=== PATIENT | male | born 1995 | race Caucasian/White ===

== ENCOUNTER 2023-08-01 15:46 | Emergency (ER) | payer OTHER, SELFPAY ==
[2023-08-01 15:50] VITALS: BP 139/89
[2023-08-01 16:03] LABS: % Basophils 0.5 % (0-2); % Eosinophils 0.5 % (0-6); % Immature Granulocytes 0.3 % (0-0.5); % Lymphocytes 29.6 % (20.5-51.1); % Monocytes 7.1 % (1.7-9.3); Absolute Lymphocytes 2.2 10^3/uL (1.2-3.4); Absolute Monocytes 0.5 10^3/uL (0.1-0.6); Absolute Neutrophils 4.5 10^3/uL (1.4-6.5); Hematocrit 40.6 % (39.0-52.0); Hemoglobin 14.8 g/dL (13.0-18.0); Mean Corp Hgb Conc. 36.5 g/dL (33.0-37.0); Mean Corpuscular Hgb 33.8 pg (27.0-31.0); Mean Corpuscular Volume 92.7 fL (80.0-94.0); Mean Platelet Volume 9.6 fL (7.4-10.4); Nucleated Red Blood Cells % 0 % (-); Platelet Count 227 10^3/uL (130-400); Red Blood Cell Count 4.38 10^6/uL (4.70-6.10); Red Cell Dist. Width 12.1 % (11.5-14.5); White Blood Cell Count 7.3 10^3/uL (4.8-10.8)
[2023-08-01 16:28] LABS: ALT (SGPT) 39 U/L (0-50); AST (SGOT) 31 U/L (17-59); Albumin 5.1 g/dl (3.5-5.0); Alkaline Phosphatase 56 U/L (38-126); Blood Urea Nitrogen 16 mg/dl (9-20); Calcium 10.4 mg/dl (8.4-10.2); Carbon Dioxide 28 mmol/L (22-30); Chloride 101 mmol/L (98-107); Glucose 105 mg/dl (70-99); Sodium 137 mmol/L (135-145); Total Bilirubin 1.6 mg/dl (0.2-1.3); Total Protein 8.2 g/dl (6.3-8.2); eGFR > 60.00
[2023-08-01 16:34] LABS: Potassium 3.4 mmol/L (3.5-5.1)
--- NOTE | 2023-08-01 17:22 | ED.GENMED ---
History of Present Illness
General
Chief Complaint: Weakness
Source: patient and family
Exam Limitations: none
Time Seen by Provider: 08/01/23 17:07
Nursing documentation reviewed up to this point in time: agreed with
Travel History
Have you had any contact with someone who has COVID-19?: No
Do you have any symptoms of coronavirus? Fever > 100 degrees, chills, cough, shortness of breath, sore throat, loss of taste or smell, muscle aches, or headache?: No
History of Present Illness
History of Present Illness:
47-year-old male with past medical history of anxiety depression presenting to the emergency department today with concerns of nauseousness and vomiting after eating a small meal prior to arrival. Has abdominal cramping at the time but no ongoing
abdominal pain. No fevers. Denies significant changes in bowel movements. Otherwise feels better since resting here in the ER. Feels some generalized.
Past History
Past History
ED Past Medical History: None
ED Past Surgical History: None
Social History
Tobacco: Non-smoker
Alcohol: Other
Drug: Marijuana
Personal: Single
Living: with family
Employment: Student
Family History
Family History: Unable to obtain
Review of Systems
Review of Systems
Allergies reviewed?: Yes
All Other Systems: ROS reviewed and negative except as documented in HPI and ROS
Phy Exam
Physical Exam
Physical Exam:
GENERAL: Alert , in no apparent distress
EYE: pupils equal and reactive
NECK: Supple, no significant adenopathy.
ENT: o/p clr, mmm.
CARDIAC: Regular rate and rhythm .
LUNGS: Clear breath sounds bilaterally, no acute respiratory distress, no wheezes/rales/rhonchi
ABDOMEN: Soft, without focal tenderness, no r/g, no cvat
NEUROLOGICAL: Alert and oriented, no focal neuro deficits
SKIN: Warm and dry, skin intact.
MUSCULOSKELETAL: No edema, well perfused.
PSYCH: Normal and appropriate interaction.
Course
Orders/Labs/Results
Orders:
Orders
08/01/23 15:57
CMP [Comprehensive Metabolic Panel] Urgent
Complete Blood Count/With Diff Urgent
08/01/23 17:21
Ondansetron Orally Disint [Zofran Odt (Orally Disintegrating)] 4 mg PO NOW STA
Abnormal Lab Results
08/01/23
15:57
RBC 4.38 L 10^6/uL
(4.70-6.10)
MCH 33.8 H pg
(27.0-31.0)
Potassium 3.4 L mmol/L
(3.5-5.1)
Glucose 105 H mg/dl
(70-99)
Calcium 10.4 H mg/dl
(8.4-10.2)
Total Bilirubin 1.6 H mg/dl
(0.2-1.3)
Albumin 5.1 H g/dl
(3.5-5.0)
08/01/23 15:57
08/01/23 15:57
Vital Signs
Initial and Last Documented VS:
Initial Vital Signs
Temp Pulse Resp BP Pulse Ox
97.8 F 98 20 139/89 100
08/01/23 15:50 08/01/23 15:50 08/01/23 15:50 08/01/23 15:50 08/01/23 15:50
Last Documented Vital Signs
Temp Pulse Resp BP Pulse Ox
97.8 F 98 20 139/89 100
08/01/23 15:50 08/01/23 15:50 08/01/23 15:50 08/01/23 15:50 08/01/23 15:50
MDM/Problems Addressed
MDM/Problems Addressed:
27-year-old male presenting to the emergency department today with concerns of vomiting prior to arrival. Here vital signs are normal patient well-appearing no acute distress with soft benign abdomen. Labs showing elevated bilirubin level however
patient does not have any significant discomfort to the right upper quadrant. Patient may have symptoms consistent with stomach bug plan for symptomatic treatment at home return precautions were given.
*Critical Care Note
Total Time (30-74mins, 75-104mins- exclusive of procedures): Not Applicable
ED Attending Note
-
Portions of this chart may have been created with voice recognition software.� Occasional wrong word or��sound alike� substitutions may have occurred due to the inherent limitations of voice recognition software.
Discharge Plan
Departure
Patient Disposition: Home (Routine Discharge)
Date of Disposition: 08/01/23
Time of Disposition: 17:24
Patient with high blood pressure during this ER visit?: No
Condition: Good
Covid-19: Not Applicable
Discharge Problem:
Vomiting
Instructions: Nausea and Vomiting, Adult (DC)
Prescriptions:
New
ondansetron 4 mg tablet,disintegrating
4 mg PO Q8H PRN (Reason: nausea and vomiting) Qty: 7 0RF
No Action
doxycycline monohydrate 100 mg capsule
100 mg PO BID Qty: 42 0RF
fluticasone propionate 1 SPRAY spray,suspension
1 spray intranasal PRN PRN (Reason: uses in the winter)
Activity Restrictions/Additional Instructions:
You came to the emergency department today with concerns of vomiting prior to arrival. Here you to reassuring evaluation. Please take Zofran 1 tab every 8 hours as needed and slowly progress your diet. Return to the emergency department for any
worsening, new or concerning symptoms.
Interventions
Interventions:
*ED COVID-19 Vaccine History Last Done: 08/01/23 15:50
[2023-08-01] MEDS: ZOFRAN ODT (ORALLY DISINTEGRATING) 4 MG PO (17:43)
== END 2023-08-01 18:04 | disposition home or self-care (01) ==
LOC: EMR 15:46
PROVIDERS: Emergency Medicine; EMERGENCY PHYSICIAN Emergency Medicine
DX: R11.2 Nausea with vomiting, unspecified (principal); F41.9 Anxiety disorder, unspecified; F32.A Depression, unspecified
CPT/HCPCS: 99283; 80053; 85025

== ENCOUNTER 2023-08-25 14:41 | Emergency (ER) | payer BC, SELFPAY ==
[2023-08-25 14:52] VITALS: BP 120/81
--- NOTE | 2023-08-25 16:08 | ED.GENMED ---
History of Present Illness
General
Chief Complaint: Throat Problem
Source: patient
Exam Limitations: none
Time Seen by Provider: 08/25/23 15:42
Nursing documentation reviewed up to this point in time: agreed with
Travel History
Have you had any contact with someone who has COVID-19?: No
Do you have any symptoms of coronavirus? Fever > 100 degrees, chills, cough, shortness of breath, sore throat, loss of taste or smell, muscle aches, or headache?: No
History of Present Illness
History of Present Illness:
27-year-old male with past medical history of anxiety depression presenting to the emergency department with concerns of discomfort with swallowing over the past few weeks. Claims that swelling anything of the liquids or soft food is uncomfortable.
Of note he has had ongoing nasal congestion throughout this period of time. Denies chest pain shortness of breath fevers.
Past History
Past History
ED Past Medical History: None
ED Past Surgical History: None
Social History
Tobacco: Non-smoker
Alcohol: Other
Drug: Marijuana
Personal: Single
Living: with family
Employment: Student
Family History
Family History: Unable to obtain
Review of Systems
Review of Systems
Allergies reviewed?: Yes
All Other Systems: ROS reviewed and negative except as documented in HPI and ROS
Phy Exam
Physical Exam
Physical Exam:
GENERAL: Alert , in no apparent distress
EYE: pupils equal and reactive
NECK: Supple, no significant adenopathy.
ENT: Cobblestoning of the posterior pharynx no significant swelling to the tonsils. Swollen boggy nasal turbinates bilaterally
CARDIAC: Regular rate and rhythm .
LUNGS: Clear breath sounds bilaterally, no acute respiratory distress, no wheezes/rales/rhonchi
ABDOMEN: Soft, without focal tenderness, no r/g, no cvat
NEUROLOGICAL: Alert and oriented, no focal neuro deficits
SKIN: Warm and dry, skin intact.
MUSCULOSKELETAL: No edema, well perfused.
PSYCH: Normal and appropriate interaction.
Course
Orders/Labs/Results
Orders:
Orders
08/25/23 16:07
Neck Soft Tissue [CR Soft Tissue Neck ] Urgent
Comment:
Reason For Exam: neck pain with swallowing
08/25/23 16:08
Dexamethasone [Decadron] 10 mg PO NOW STA
Vital Signs
Initial and Last Documented VS:
Initial Vital Signs
Temp Pulse Resp BP Pulse Ox
98.4 F 79 20 120/81 99
08/25/23 14:52 08/25/23 14:52 08/25/23 14:52 08/25/23 14:52 08/25/23 14:52
Last Documented Vital Signs
Temp Pulse Resp BP Pulse Ox
98.4 F 79 20 120/81 99
08/25/23 14:52 08/25/23 14:52 08/25/23 14:52 08/25/23 14:52 08/25/23 15:52
MDM/Problems Addressed
MDM/Problems Addressed:
27-year-old male presenting to the emergency department today with concerns of ongoing throat discomfort over the past few weeks. On arrival here vital signs are normal patient well-appearing no acute distress tolerating secretions. On physical
examination he is cobblestoning to the posterior pharynx but no significant tonsillar swelling. Patient claims he has had ongoing postnasal drip and nasal congestion. Patient symptoms are likely secondary to this. Patient was given steroid to
help with inflammation as well as advised to start using Flonase. Soft tissue x-ray of the neck was performed without significant inflammation being seen. Otherwise patient stable for outpatient management given information for ENT follow-up as
needed. Return precautions given.
*Critical Care Note
Total Time (30-74mins, 75-104mins- exclusive of procedures): Not Applicable
ED Attending Note
-
Portions of this chart may have been created with voice recognition software.� Occasional wrong word or��sound alike� substitutions may have occurred due to the inherent limitations of voice recognition software.
Discharge Plan
Departure
Patient Disposition: Home (Routine Discharge)
Date of Disposition: 08/25/23
Time of Disposition: 16:19
Patient with high blood pressure during this ER visit?: No
Condition: Good
Covid-19: Not Applicable
Discharge Problem:
Pain in throat, Post-nasal drip
Instructions: Sore Throat, Adult (DC)
Prescriptions:
New
fluticasone propionate [Flonase Allergy Relief] 50 mcg/actuation spray,suspension
2 spray intranasal DAILY Qty: 16 0RF
prednisone 20 mg tablet
40 mg PO DAILY 3 Days Qty: 6 0RF
No Action
doxycycline monohydrate 100 mg capsule
100 mg PO BID Qty: 42 0RF
fluticasone propionate 1 SPRAY spray,suspension
1 spray intranasal PRN PRN (Reason: uses in the winter)
ondansetron 4 mg tablet,disintegrating
4 mg PO Q8H PRN (Reason: nausea and vomiting) Qty: 7 0RF
Referrals:
NONE,* [Family Provider] -
Temi Roland MD [Active] - Follow up in 1 week
Activity Restrictions/Additional Instructions:
You came to the emergency department today with concerns of ongoing throat discomfort. You likely have postnasal drip that is causing this symptom. Please take the prednisone 40 mg once daily for the next 3 days and use the Flonase 2 sprays each
nostril daily over the next week or so. Symptoms should hopefully be improving. Please follow closely with ENT for ongoing symptoms. Return to the emergency department for any worsening, new or concerning symptoms.
Interventions
Interventions:
*General Assessment Last Done: 08/25/23 14:52
ED-EENT Assessment Last Done: 08/25/23 15:53
ED- Pulmonary Assessment Last Done: 08/25/23 15:52
[2023-08-25] MEDS: DECADRON 10 MG PO (17:18)
[2023-08-25 17:19] VITALS: BP 141/71
[2023-08-25 17:20] VITALS: BP 141/71
== END 2023-08-25 17:21 | disposition home or self-care (01) ==
LOC: EMR 14:41
PROVIDERS: EMERGENCY PHYSICIAN Emergency Medicine
DX: R09.82 Postnasal drip (principal); R07.0 Pain in throat; R09.81 Nasal congestion; M54.2 Cervicalgia; F41.9 Anxiety disorder, unspecified; F32.A Depression, unspecified
CPT/HCPCS: 99283; 70360

== ENCOUNTER 2023-08-28 14:37 | Emergency (ER) | payer BC, SELFPAY ==
[2023-08-28 14:49] VITALS: BP 139/89
--- NOTE | 2023-08-28 15:57 | ED.GENMED ---
History of Present Illness
General
Chief Complaint: Throat Problem
Source: patient
Exam Limitations: none
Time Seen by Provider: 08/28/23 15:26
Nursing documentation reviewed up to this point in time: agreed with
Travel History
Have you had any contact with someone who has COVID-19?: No
Do you have any symptoms of coronavirus? Fever > 100 degrees, chills, cough, shortness of breath, sore throat, loss of taste or smell, muscle aches, or headache?: Yes
Symptoms:: sore throat.
History of Present Illness
History of Present Illness:
27-year-old male presents to the ER for evaluation. Patient reports he has had a sore throat scratchy throat for the past week. He was seen here 3 days ago because he was having some difficulty swallowing his food and had a lot of postnasal drip.
He reports he was given a prescription for steroids for 3 days and did complete that today. He also has been using Flonase. That he felt a lump to the right side of his neck which the prompted him to come to the ER. He does feel that his throat
is scratchy but he has been drinking and eating well. He denies any fever or chills. He denies any neck pain. He denies any rash. He denies any cough or difficulty breathing.
Past History
Past History
ED Past Medical History: None
ED Past Surgical History: None
Social History
Tobacco: Non-smoker
Alcohol: Other
Drug: Marijuana
Personal: Single
Living: with family
Employment: Student
Family History
Family History: Unable to obtain
Review of Systems
Review of Systems
Allergies reviewed?: Yes
All Other Systems: ROS reviewed and negative except as documented in HPI and ROS
Constitutional: Reports no symptoms
EENT: Reports sore throat and other (felt 'lump to right side of neck' ); Denies runny nose
Respiratory: Reports no symptoms; Denies cough or trouble breathing
Cardiac: Reports no symptoms
ABD/GI: Reports no symptoms
Musculoskeletal: Reports no symptoms
Skin: Reports no symptoms; Denies rash
Neurological: Reports no symptoms
Hematologic/Lymphatic: Reports no symptoms
Psychiatric: Reports no symptoms
Phy Exam
General Physical Exam
General Presentation: no apparent distress
General age: appears stated age
General Skin: warm and dry
General Habitus: normal
General Mental: alert
General Hydration: appears well hydrated
ENT Exam
ENT Exam: EOMI, neck supple, pharyngeal erythema and other (Tonsils are not swollen, small lymphadenopathy to anterior cervical lymph nodes no swelling no drooling tolerating secretions well )
Cardiovascular Exam
Cardiovascular Exam: regular rate/rhythm, no murmur and normal peripheral pulses
Pulmonary Exam
Pulmonary Exam: lungs clear and no respiratory distress
Neurological Exam
Neurological Exam: alert and oriented x3
Radha Coma Scale
Eye Opening: Spontaneous
Verbal Response: Oriented
Motor Response: Obeys Commands
GCS Total Score: 15
Musculoskeletal Exam
Musculoskeletal Exam: full ROM
Skin Exam
Skin Exam: normal color and warm/dry
Psychiatric Exam
Psychiatric Exam: normal mood/affect
Course
Orders/Labs/Results
Orders:
Orders
08/28/23 16:02
Complete Blood Count/With Diff Urgent
Comprehensive Metabolic Panel Urgent
Monotest Urgent
Rapid Strep Group A Urgent
KAREN Source: Throat/Pharynx
Specimen Description:
Date Specimen was Collected: 08/28/23
Time Specimen was Collected: 15:50
Abnormal Lab Results
08/28/23
16:02
MCH 33.1 H pg
(27.0-31.0)
Absolute Lymphs (auto) 0.7 L 10^3/uL
(1.2-3.4)
Neutrophils % 83.9 H %
(42.2-75.2)
Lymphocytes % 11.1 L %
(20.5-51.1)
Glucose 123 H mg/dl
(70-99)
Calcium 10.6 H mg/dl
(8.4-10.2)
Total Bilirubin 1.4 H mg/dl
(0.2-1.3)
08/28/23 16:02
08/28/23 16:02
Vital Signs
Initial and Last Documented VS:
Initial Vital Signs
Temp Pulse Resp BP Pulse Ox
98.8 F 80 20 139/89 100
08/28/23 14:49 08/28/23 14:49 08/28/23 14:49 08/28/23 14:49 08/28/23 14:49
Last Documented Vital Signs
Temp Pulse Resp BP Pulse Ox
98.8 F 80 20 139/89 100
08/28/23 14:49 08/28/23 14:49 08/28/23 14:49 08/28/23 14:49 08/28/23 14:49
MDM/Problems Addressed
Differential Diagnosis Includes:
not limited to:
Sore throat viral syndrome strep throat mononucleosis
MDM/Problems Addressed:
Patient nontoxic in no acute distress serial days ago for sore throat. Patient felt a lump on the side of his neck which is what brought him here to the ER. On exam patient does have a small lymph node at the site however he is nontoxic. Pharynx
is mildly red no exudate to tonsils no meningismus afebrile denies any fevers normal white count . neg mono neg strep. s/s consistent w/ sore throat mild viral syndrome will d/c with supportive care
*Critical Care Note
Total Time (30-74mins, 75-104mins- exclusive of procedures): Not Applicable
ED Attending Note
-
Portions of this chart may have been created with voice recognition software.� Occasional wrong word or��sound alike� substitutions may have occurred due to the inherent limitations of voice recognition software.
Discharge Plan
Departure
Patient Disposition: Home (Routine Discharge)
Date of Disposition: 08/28/23
Time of Disposition: 17:21
Patient with high blood pressure during this ER visit?: Yes
Condition: Fair
Covid-19: Not Applicable
Discharge Problem:
Acute sore throat
Instructions: Sore Throat, Adult (DC), BLOOD PRESSURE
Prescriptions:
No Action
doxycycline monohydrate 100 mg capsule
100 mg PO BID Qty: 42 0RF
fluticasone propionate 1 SPRAY spray,suspension
1 spray intranasal PRN PRN (Reason: uses in the winter)
ondansetron 4 mg tablet,disintegrating
4 mg PO Q8H PRN (Reason: nausea and vomiting) Qty: 7 0RF
fluticasone propionate [Flonase Allergy Relief] 50 mcg/actuation spray,suspension
2 spray intranasal DAILY Qty: 16 0RF
prednisone 20 mg tablet
40 mg PO DAILY 3 Days Qty: 6 0RF
Referrals:
Nikkie Reeves MD [Family Provider] -
Activity Restrictions/Additional Instructions:
As discussed you are negative for rapid strep, mono. Your blood work is unremarkable. Continue to stay well-hydrated follow-up with family doctor in the next 2 days for reevaluation.
return if any worsening of symptoms
Interventions
Interventions:
*Risk Screen - Suicide Last Done: 08/28/23 16:21
*General Assessment Last Done: 08/28/23 16:21
*Neglect/Abuse Screening Last Done: 08/28/23 16:21
ED- Fall Risk Assessment Last Done: 08/28/23 17:31
*Nursing Disposition Last Done: 08/28/23 17:31
ED-EENT Assessment Last Done: 08/28/23 16:21
ED- Pulmonary Assessment Last Done: 08/28/23 16:21
Discharge Date and Time
Discharge Date/Time: 08/28/23 17:32
[2023-08-28 16:10] LABS: % Immature Granulocytes 0.2 % (0-0.5); % Lymphocytes 11.1 % (20.5-51.1); % Monocytes 4.8 % (1.7-9.3); % Neutrophils 83.9 % (42.2-75.2); Absolute Lymphocytes 0.7 10^3/uL (1.2-3.4); Absolute Monocytes 0.3 10^3/uL (0.1-0.6); Absolute Neutrophils 5.6 10^3/uL (1.4-6.5); Hemoglobin 15.6 g/dL (13.0-18.0); Mean Corp Hgb Conc. 35.5 g/dL (33.0-37.0); Mean Corpuscular Hgb 33.1 pg (27.0-31.0); Mean Corpuscular Volume 93.4 fL (80.0-94.0); Mean Platelet Volume 10.1 fL (7.4-10.4); Nucleated Red Blood Cells % 0 % (-); Platelet Count 206 10^3/uL (130-400); Red Blood Cell Count 4.71 10^6/uL (4.70-6.10); Red Cell Dist. Width 11.5 % (11.5-14.5); White Blood Cell Count 6.7 10^3/uL (4.8-10.8)
[2023-08-28 16:20] LABS: Monotest Negative (Negative)
[2023-08-28 16:26] LABS: ALT (SGPT) 19 U/L (0-50); AST (SGOT) 22 U/L (17-59); Alkaline Phosphatase 52 U/L (38-126); Blood Urea Nitrogen 17 mg/dl (9-20); Calcium 10.6 mg/dl (8.4-10.2); Carbon Dioxide 26 mmol/L (22-30); Chloride 98 mmol/L (98-107); Glucose 123 mg/dl (70-99); Potassium 3.9 mmol/L (3.5-5.1); Sodium 137 mmol/L (135-145); Total Bilirubin 1.4 mg/dl (0.2-1.3); Total Protein 8.1 g/dl (6.3-8.2); eGFR > 60.00
== END 2023-08-28 17:32 | disposition home or self-care (01) ==
LOC: EMR 14:37
PROVIDERS: Nurse Practitioner; EMERGENCY PHYSICIAN Emergency Medicine; FAMILY PHYSICIAN Family Medicine
DX: J02.9 Acute pharyngitis, unspecified (principal); R03.0 Elevated blood-pressure reading, without diagnosis of hypertension
CPT/HCPCS: 99283; 80053; 85025; 86308; 87070; 87880